=== PATIENT | male | born 1985 | race Caucasian/White ===

== ENCOUNTER 2016-07-01 03:30 | Emergency (ER) | payer OTHER ==
[~2016-07-01 03:30] MED LIST: GABA300C3 PO
[2016-07-01] MEDS ORDERED: KETOROLAC 30 MG/ML VIAL (J1885) As Ordered ONE (07:06)
--- NOTE | 2016-07-01 08:15 | REP ---
Clinical: Trauma. Fall. Comparison: 04/15/2015 . Technique: AP, lateral, bilateral oblique, and coned-down views. Findings: Alignment and lordosis is maintained. The vertebral bodies including transverse process and spinous processes are intact and normal. There is no evidence for acute fracture / compression injury or subluxation. No evidence for spondylolysis or spondylolisthesis. No significant degenerative change is noted. Impression: Normal lumbosacral spine radiograph series. No acute fracture / compression injury or subluxation. Signed by Felipe Maria MD 07/01/2016 08:06 A
[2016-07-01] MEDS ORDERED: HYDROmorphone HCL 1 MG/ML SYRINGE (J1170) As Ordered ONE (08:33)
--- NOTE | 2016-07-01 09:09 | EDDOCDS ---
Physician Documentation [facility] Name: Hermes Barcenas Age: 30 yrs Sex: Male : 1985 Arrival Date: 07/01/2016 Time: 03:30 Bed I2 / M2 Private MD: Disposition: 07/01/16 08:31 Discharged to Home/Self Care. Impression: Strain of muscle and tendon of back wall of thorax - acute on chronic. - Condition is Stable. - Discharge Instructions: Back Pain, Adult, Muscle Strain. - Prescriptions for Naprosyn 500 mg Oral Tablet - take 1 tablet by ORAL route 2 times per day take with food; 30 tablet. Hydrocodone- Acetaminophen 5-325 mg Oral Tablet - take 1 tablet by ORAL route every 6 hours As needed MDD: 4 tabs; 12 tablet. Cyclobenzaprine 10 mg Oral Tablet - take 1 tablet by ORAL route 3 times per day As needed; 15 tablet. - Medication Reconciliation, Work Release Form - 2 day form. - Follow up: Private Physician; When: Call to arrange an appointment; Reason: Wound/Symptom Recheck, Recheck today's complaints, Worsening of conditions, Continuance of care. - Problem is an acute exacerbation. - Symptoms have improved. Historical: - Allergies: No known drug Allergies; - Home Meds: 1. none - PMHx: back painchronic; - Social history: Smoking status: Patient uses tobacco products, light tobacco smoker. No barriers to communication noted, The patient speaks fluent Estonian, Speaks appropriately for age. - Family history: Not pertinent. - : The pt / caregiver states he / she is not on anticoagulants. Home medication list is obtained from the patient. - Exposure Risk Screening:: None identified. Vital Signs: 07/01 03:47 BP 124 / 79; Pulse 95; Resp 18; Temp 97.5(T); Pulse Ox 96% on R/A; Weight 79.38 kg / kmg1 175 lbs (R); Height 5 ft. 9 in. (175.26 cm) (R); Pain 8/10; 07:15 BP 128 / 68; Pulse 78; Resp 18; Temp 97.4(O); Pulse Ox 98% ; Pain 8/10; jam1 08:00 Pain 8/10; ja5 08:27 BP 127 / 58; Pulse 85; Resp 16; Temp 97.5(O); Pulse Ox 96% on R/A; Pain 8/10; ja5 09:07 Pain 5/10; dsf 03:47 Body Mass Index 25.84 (79.38 kg, 175.26 cm) kmg1 MDM: 04:02 [facility] Payment Agreement was scanned into [email or web address] and attached to record. [facility] 07:03 ketorolac 60 mg IM once ordered. cc10 07:03 Spine. Lumbosacral, Complete Ordered. EDWV 07:12 Financial registration complete. mm15 08:30 Dilaudid - HYDROmorphone 1 mg IM once ordered. cc10 Administered Medications: 07:10 Drug: ketorolac 60 mg [ketorolac 30 mg/mL (1 mL) injection solution (2 mL)] Route: IM; ja5 Site: left gluteus; 08:00 Follow up: Pain 8 Adult ja 08:37 Drug: Dilaudid - HYDROmorphone 1 mg [hydromorphone 1 mg/mL injection syringe (1 mL)] jc4 Route: IM; Site: left gluteus; 09:07 Follow up: Pain 5/10 Adult dsf Signatures: Dispatcher [employer] EDWV Cheyanne Mcnamara RN RN kmg1 Lizy Villalpando RN RN dsf Ale Alanis mm15 Fabian Lin PA-C PARodo cc10 Gregoria Shaffer [facility] Tiffanie Ang RN jc4 Tamera Nunes RN ja5 The chart was reviewed and I authenticate all verbal orders and agree with the evaluation and treatment provided.Attachments: 04:02 [facility] Payment Agreement [facility] MTDD
--- NOTE | 2016-07-01 09:09 | EDDOCDS ---
Nurse's Notes [facility] Name: Hermes Human Age: 30 yrs Sex: Male : 1985 Arrival Date: 07/01/2016 Time: 03:30 Bed I2 / M2 Private MD: Diagnosis: Strain of muscle and tendon of back wall of thorax-acute on chronic Presentation: 07/01 03:44 Presenting complaint: Patient states: Slipped going down the stairs at his house approx kmg1 1 hour ago. Was able to catch himself but is now having mid back pain. Suicide/Homicide risk assessment- the patient denies having any suicidal and/or homicidal ideations and does not present with any other emotional, behavioral or mental health complaints. 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 Transition of care: patient was not received from another setting of care. 03:44 Acuity: MARTELL Level 4 km 03:44 Method Of Arrival: Walkin/Carried/Asstd [facility] 09:08 Adult Sepsis Screening: The patient does not have new or worsening altered mentation. dsf Patient's respiratory rate is less than 22. Systolic blood pressure is greater than 100. Patient has a qSOFA score of 0- Negative Sepsis Screen. Triage Assessment: 03:47 General: Appears in no apparent distress, uncomfortable, Behavior is appropriate for km age, cooperative, pleasant. Pain: Location: mid back area Pain currently is 8 out of 10 on a pain scale. Quality of pain is described as stabbing, stinging, Pain began 1 hour ago. Pt Declines HIV testing. Musculoskeletal: Reports pain in mid back area. 05:28 I have visited this patient for a triage reassessment, No change in assessment. km Historical: - Allergies: No known drug Allergies; - Home Meds: 1. none - PMHx: back painchronic; - Social history: Smoking status: Patient uses tobacco products, light tobacco smoker. No barriers to communication noted, The patient speaks fluent Lithuanian, Speaks appropriately for age. - Family history: Not pertinent. - : The pt / caregiver states he / she is not on anticoagulants. Home medication list is obtained from the patient. - Exposure Risk Screening:: None identified. Screenin:15 Screening information is obtained from the patient. Primary language is Lithuanian. Fall jam1 risk: No risks identified. Assistance ADL's: requires no assistance with activities of daily living. Abuse/DV Screen: The patient / caregiver reports he/she is: not in a situation that causes fear, pain or injury. Nutritional screening: No deficits noted. Exposure Risk Screening: None identified. Advance Directives: Currently, there is no health care proxy. There is no active DNR order. There is no living will. 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 Advance directive information has not previously been placed in an [facility] medical record. Further advance directive information is declined. home support is adequate. Assessment: 07:45 General: Appears uncomfortable, Behavior is appropriate for age, cooperative. Pain: ja5 Location: lumbar area, left mid back and right mid back Pain currently is 8 out of 10 on a pain scale. Neurological: Level of Consciousness is awake, alert, Oriented to person, place, time. Cardiovascular: Capillary refill < 3 seconds Heart tones S1 S2 present. Respiratory: Airway is patent Respiratory effort is even, unlabored. Derm: Skin is pink, warm & dry. Musculoskeletal: Circulation, motion, and sensation intact. Injury Description: There was no impact from fall, patient caught himself while grabbing railing and twisted his back. 09:07 General: Appears in no apparent distress, Behavior is appropriate for age, cooperative. dsf Pain: Pain currently is 5 out of 10 on a pain scale. Neurological: Level of Consciousness is awake, alert. Cardiovascular: Capillary refill < 3 seconds. Respiratory: Airway is patent Respiratory effort is even, unlabored, Respiratory pattern is regular, symmetrical. Derm: Skin is pink, warm & dry. Vital Signs: 03:47 BP 124 / 79; Pulse 95; Resp 18; Temp 97.5(T); Pulse Ox 96% on R/A; Weight 79.38 kg (R); kmg1 Height 5 ft. 9 in. (175.26 cm) (R); Pain 8/10; 07:15 BP 128 / 68; Pulse 78; Resp 18; Temp 97.4(O); Pulse Ox 98% ; Pain 8/10; jam1 08:00 Pain 8/10; ja5 08:27 BP 127 / 58; Pulse 85; Resp 16; Temp 97.5(O); Pulse Ox 96% on R/A; Pain 8/10; ja5 09:07 Pain 5/10; dsf 03:47 Body Mass Index 25.84 (79.38 kg, 175.26 cm) [facility] Vitals: 03:47 Log In Time: July 01, 2016 at 03:31. [facility] ED Course: 03:31 Patient visited by Tasha Echevarria Reg. hs2 03:31 Patient moved to Waiting hs2 03:46 Triage Initiated [facility] 03:51 Patient visited by Cheyanne Mcnamara, SAMMY. [facility] 04:02 [facility] Payment Agreement was scanned into [employer] and attached to record. slh 07:00 Fabian Lin PA-C is PHCP. cc10 07:00 Lorrie Lobo MD is Attending Physician. cc10 07:00 Patient visited by Fabian Lin PA-C. cc10 07:00 Patient visited by Fabian Lin PA-C. cc10 07:00 Patient moved to I2 / M2 kcs 07:01 Tamera Nunes,RN is Primary Nurse. ja5 07:04 Tiffanie Ang, SAMMY is Primary Nurse. jc4 07:15 Pt greeted and oriented to ED. Patient advised of names of staff involved in care, jam1 location of call forman, wait times and NPO status. Patient has correct armband on for positive identification. Bed in low position. Call light in reach. Side rails up X 1. Door closed. 07:49 Patient visited by Tamera Nunes,SAMMY. ja5 08:27 Patient visited by Tamera Nunes,SAMMY. ja5 08:35 Spine. Lumbosacral, Complete Returned. EDMS 09:07 The patient / caregiver is instructed regarding the plan of care and ED course. dsf 09:07 No IV's were initiated during this patient's visit. No procedures done that require dsf assistance. Administered Medications: 07:10 Drug: ketorolac 60 mg [ketorolac 30 mg/mL (1 mL) injection solution (2 mL)] Route: IM; ja5 Site: left gluteus; 08:00 Follow up: Pain 8/10 Adult ja5 08:37 Drug: Dilaudid - HYDROmorphone 1 mg [hydromorphone 1 mg/mL injection syringe (1 mL)] jc4 Route: IM; Site: left gluteus; 09:07 Follow up: Pain 09/25 Adult dsf Order Results: Radiology Order: Spine. Lumbosacral, Complete Test: Spine. Lumbosacral, Complete REASON FOR EXAMINATION: Trauma; Clinical: Trauma. Fall.; ; Comparison: 04/15/2015 .; ; Technique: AP, lateral, bilateral oblique, and coned-down views.; ; Findings: Alignment and lordosis is maintained. The vertebral bodies including; transverse process and spinous processes are intact and normal. There is no; evidence for acute fracture / compression injury or subluxation. No evidence for; spondylolysis or spondylolisthesis. No significant degenerative change is; noted.; ; Impression:; Normal lumbosacral spine radiograph series.; No acute fracture / compression injury or subluxation.; ; ; Signed by; Felipe Maria MD 07/01/2016 08:06 A; Outcome: 08:31 Discharge ordered by Provider. cc10 09:07 Discharge Assessment: Patient awake, alert and oriented x 3. No cognitive and/or dsf functional deficits noted. Patient verbalized understanding of disposition instructions. patient administered narcotics - yes. Pt provided with safe discharge. The following High Risk Discharge criteria are identified: None. Discharged to home ambulatory, with significant other. Condition: stable. Discharge instructions given to patient, Instructed on discharge instructions, follow up and referral plans. medication usage, no driving heavy equipment, Rest, Ice, Compression and Elevation. Demonstrated understanding of instructions, medications, Pt was receptive of discharge instructions/ teaching. Prescriptions given X 3, Work note provided to patient. No special radiology studies were completed. Property sent home with patient. 09:08 Patient left the ED. dsf Signatures: Dispatcher [employer] EDMS Zena Garcia, RN RN Cheyanne Aragon RN RN kmg1 Jackelyn Mccarty, AUTOMOBILE SERVICE STATION MANAGER AUTOMOBILE SERVICE STATION MANAGER jam1 Tiffanie Ang RN RN [email or web address] Lizy VillalpandoRN RN juanaf Fabian Lin, PA-C PA-C cc10 Gregoria Shaffer Tasha Burris, Reg Reg hs2 Tamera Nunes,RN RN ja5 MTDD
--- NOTE | 2016-07-03 10:09 | EDDOCDS ---
Physician Documentation [facility] Name: Hermes Barcenas Age: 30 yrs Sex: Male : 1985 Arrival Date: 07/01/2016 Time: 03:30 Bed I2 / M2 Private MD: Disposition: 07/01/16 08:31 Discharged to Home/Self Care. Impression: Strain of muscle and tendon of back wall of thorax - acute on chronic. - Condition is Stable. - Discharge Instructions: Back Pain, Adult, Muscle Strain. - Prescriptions for Naprosyn 500 mg Oral Tablet - take 1 tablet by ORAL route 2 times per day take with food; 30 tablet. Hydrocodone- Acetaminophen 5-325 mg Oral Tablet - take 1 tablet by ORAL route every 6 hours As needed MDD: 4 tabs; 12 tablet. Cyclobenzaprine 10 mg Oral Tablet - take 1 tablet by ORAL route 3 times per day As needed; 15 tablet. - Medication Reconciliation, Work Release Form - 2 day form. - Follow up: Private Physician; When: Call to arrange an appointment; Reason: Wound/Symptom Recheck, Recheck today's complaints, Worsening of conditions, Continuance of care. - Problem is an acute exacerbation. - Symptoms have improved. Historical: - Allergies: No known drug Allergies; - Home Meds: 1. none - PMHx: back painchronic; - Social history: Smoking status: Patient uses tobacco products, light tobacco smoker. No barriers to communication noted, The patient speaks fluent Danish, Speaks appropriately for age. - Family history: Not pertinent. - : The pt / caregiver states he / she is not on anticoagulants. Home medication list is obtained from the patient. - Exposure Risk Screening:: None identified. Vital Signs: 07/01 03:47 BP 124 / 79; Pulse 95; Resp 18; Temp 97.5(T); Pulse Ox 96% on R/A; Weight 79.38 kg / kmg1 175 lbs (R); Height 5 ft. 9 in. (175.26 cm) (R); Pain 8/10; 07:15 BP 128 / 68; Pulse 78; Resp 18; Temp 97.4(O); Pulse Ox 98% ; Pain 8/10; jam1 08:00 Pain 8/10; ja5 08:27 BP 127 / 58; Pulse 85; Resp 16; Temp 97.5(O); Pulse Ox 96% on R/A; Pain 8/10; ja5 09:07 Pain 5/10; dsf 03:47 Body Mass Index 25.84 (79.38 kg, 175.26 cm) kmg1 MDM: 04:02 [facility] Payment Agreement was scanned into [employer] and attached to record. [facility] 07:03 ketorolac 60 mg IM once ordered. cc 07:03 Spine. Lumbosacral, Complete Ordered. EDVA 07:12 Financial registration complete. mm15 08:30 Dilaudid - HYDROmorphone 1 mg IM once ordered. cc10 07/02 11:07 T-Sheet-- Draft Copy was scanned into [employer] and attached to record. gb Administered Medications: 07/01 07:10 Drug: ketorolac 60 mg [ketorolac 30 mg/mL (1 mL) injection solution (2 mL)] Route: IM; ja5 Site: left gluteus; 08:00 Follow up: Pain 8/10 Adult ja5 08:37 Drug: Dilaudid - HYDROmorphone 1 mg [hydromorphone 1 mg/mL injection syringe (1 mL)] jc4 Route: IM; Site: left gluteus; 09:07 Follow up: Pain 5/10 Adult dsf Signatures: Dispatcher [employer] EDVA Cheyanne Mcnamara, RN RN kmg1 Griselda Al, Reg Reg gb Lizy Villalpando RN RN dsf Ale Alanis mm15 Fabian Lin PARodo PARodo curtis Gregoria Shaffer [facility] Tiffanie Ang RN jc4 Tamera Nunes RN ja5 The chart was reviewed and I authenticate all verbal orders and agree with the evaluation and treatment provided.Attachments: 04:02 [facility] Payment Agreement [facility] 07/02 11:07 T-Sheet-- Draft Copy gb Chart Complete MTDD
--- NOTE | 2016-07-03 10:09 | EDDOCDS ---
Physician Documentation [facility] Name: Hermes Barcenas Age: 30 yrs Sex: Male : 1985 Arrival Date: 07/01/2016 Time: 03:30 Bed I2 / M2 Private MD: Disposition: 07/01/16 08:31 Discharged to Home/Self Care. Impression: Strain of muscle and tendon of back wall of thorax - acute on chronic. - Condition is Stable. - Discharge Instructions: Back Pain, Adult, Muscle Strain. - Prescriptions for Naprosyn 500 mg Oral Tablet - take 1 tablet by ORAL route 2 times per day take with food; 30 tablet. Hydrocodone- Acetaminophen 5-325 mg Oral Tablet - take 1 tablet by ORAL route every 6 hours As needed MDD: 4 tabs; 12 tablet. Cyclobenzaprine 10 mg Oral Tablet - take 1 tablet by ORAL route 3 times per day As needed; 15 tablet. - Medication Reconciliation, Work Release Form - 2 day form. - Follow up: Private Physician; When: Call to arrange an appointment; Reason: Wound/Symptom Recheck, Recheck today's complaints, Worsening of conditions, Continuance of care. - Problem is an acute exacerbation. - Symptoms have improved. Historical: - Allergies: No known drug Allergies; - Home Meds: 1. none - PMHx: back painchronic; - Social history: Smoking status: Patient uses tobacco products, light tobacco smoker. No barriers to communication noted, The patient speaks fluent Upper Sorbian, Speaks appropriately for age. - Family history: Not pertinent. - : The pt / caregiver states he / she is not on anticoagulants. Home medication list is obtained from the patient. - Exposure Risk Screening:: None identified. Vital Signs: 07/01 03:47 BP 124 / 79; Pulse 95; Resp 18; Temp 97.5(T); Pulse Ox 96% on R/A; Weight 79.38 kg / kmg1 175 lbs (R); Height 5 ft. 9 in. (175.26 cm) (R); Pain 8/10; 07:15 BP 128 / 68; Pulse 78; Resp 18; Temp 97.4(O); Pulse Ox 98% ; Pain 8/10; jam1 08:00 Pain 8/10; ja5 08:27 BP 127 / 58; Pulse 85; Resp 16; Temp 97.5(O); Pulse Ox 96% on R/A; Pain 8/10; ja5 09:07 Pain 5/10; dsf 03:47 Body Mass Index 25.84 (79.38 kg, 175.26 cm) kmg1 MDM: 04:02 [facility] Payment Agreement was scanned into [employer] and attached to record. [facility] 07:03 ketorolac 60 mg IM once ordered. cc 07:03 Spine. Lumbosacral, Complete Ordered. EDNV 07:12 Financial registration complete. mm15 08:30 Dilaudid - HYDROmorphone 1 mg IM once ordered. cc10 07/02 11:07 T-Sheet-- Draft Copy was scanned into [employer] and attached to record. gb Administered Medications: 07/01 07:10 Drug: ketorolac 60 mg [ketorolac 30 mg/mL (1 mL) injection solution (2 mL)] Route: IM; ja5 Site: left gluteus; 08:00 Follow up: Pain 8/10 Adult ja5 08:37 Drug: Dilaudid - HYDROmorphone 1 mg [hydromorphone 1 mg/mL injection syringe (1 mL)] jc4 Route: IM; Site: left gluteus; 09:07 Follow up: Pain 5/10 Adult dsf Signatures: Dispatcher [employer] EDNV Cheyanne Mcnamara, RN RN kmg1 Griselda Al, Reg Reg gb Lizy Villalpando RN RN dsf Ale Alanis mm15 Fabian Lin PARodo PARdoo curtis Gregoria Shaffer [facility] Tiffanie Ang RN jc4 Tamera Nunes RN ja5 The chart was reviewed and I authenticate all verbal orders and agree with the evaluation and treatment provided.Attachments: 04:02 [facility] Payment Agreement [facility] 07/02 11:07 T-Sheet-- Draft Copy gb Chart Complete MTDD
--- NOTE | 2016-07-03 10:09 | EDDOCDS ---
Nurse's Notes [facility] Name: Hermes Human Age: 30 yrs Sex: Male : 1985 Arrival Date: 07/01/2016 Time: 03:30 Bed I2 / M2 Private MD: Diagnosis: Strain of muscle and tendon of back wall of thorax-acute on chronic Presentation: 07/01 03:44 Presenting complaint: Patient states: Slipped going down the stairs at his house approx kmg1 1 hour ago. Was able to catch himself but is now having mid back pain. Suicide/Homicide risk assessment- the patient denies having any suicidal and/or homicidal ideations and does not present with any other emotional, behavioral or mental health complaints. 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 Transition of care: patient was not received from another setting of care. 03:44 Acuity: MARTELL Level 4 km 03:44 Method Of Arrival: Walkin/Carried/Asstd [facility] 09:08 Adult Sepsis Screening: The patient does not have new or worsening altered mentation. dsf Patient's respiratory rate is less than 22. Systolic blood pressure is greater than 100. Patient has a qSOFA score of 0- Negative Sepsis Screen. Triage Assessment: 03:47 General: Appears in no apparent distress, uncomfortable, Behavior is appropriate for km age, cooperative, pleasant. Pain: Location: mid back area Pain currently is 8 out of 10 on a pain scale. Quality of pain is described as stabbing, stinging, Pain began 1 hour ago. Pt Declines HIV testing. Musculoskeletal: Reports pain in mid back area. 05:28 I have visited this patient for a triage reassessment, No change in assessment. km Historical: - Allergies: No known drug Allergies; - Home Meds: 1. none - PMHx: back painchronic; - Social history: Smoking status: Patient uses tobacco products, light tobacco smoker. No barriers to communication noted, The patient speaks fluent Urdu, Speaks appropriately for age. - Family history: Not pertinent. - : The pt / caregiver states he / she is not on anticoagulants. Home medication list is obtained from the patient. - Exposure Risk Screening:: None identified. Screenin:15 Screening information is obtained from the patient. Primary language is Urdu. Fall jam1 risk: No risks identified. Assistance ADL's: requires no assistance with activities of daily living. Abuse/DV Screen: The patient / caregiver reports he/she is: not in a situation that causes fear, pain or injury. Nutritional screening: No deficits noted. Exposure Risk Screening: None identified. Advance Directives: Currently, there is no health care proxy. There is no active DNR order. There is no living will. There is no Power of Restaurant Hospitality Manager. Advance directive information has not previously been placed in an [facility] medical record. Further advance directive information is declined. home support is adequate. Assessment: 07:45 General: Appears uncomfortable, Behavior is appropriate for age, cooperative. Pain: ja5 Location: lumbar area, left mid back and right mid back Pain currently is 8 out of 10 on a pain scale. Neurological: Level of Consciousness is awake, alert, Oriented to person, place, time. Cardiovascular: Capillary refill < 3 seconds Heart tones S1 S2 present. Respiratory: Airway is patent Respiratory effort is even, unlabored. Derm: Skin is pink, warm & dry. Musculoskeletal: Circulation, motion, and sensation intact. Injury Description: There was no impact from fall, patient caught himself while grabbing railing and twisted his back. 09:07 General: Appears in no apparent distress, Behavior is appropriate for age, cooperative. dsf Pain: Pain currently is 5 out of 10 on a pain scale. Neurological: Level of Consciousness is awake, alert. Cardiovascular: Capillary refill < 3 seconds. Respiratory: Airway is patent Respiratory effort is even, unlabored, Respiratory pattern is regular, symmetrical. Derm: Skin is pink, warm & dry. Vital Signs: 03:47 BP 124 / 79; Pulse 95; Resp 18; Temp 97.5(T); Pulse Ox 96% on R/A; Weight 79.38 kg (R); kmg1 Height 5 ft. 9 in. (175.26 cm) (R); Pain 8/10; 07:15 BP 128 / 68; Pulse 78; Resp 18; Temp 97.4(O); Pulse Ox 98% ; Pain 8/10; jam1 08:00 Pain 8/10; ja5 08:27 BP 127 / 58; Pulse 85; Resp 16; Temp 97.5(O); Pulse Ox 96% on R/A; Pain 8/10; ja5 09:07 Pain 5/10; dsf 03:47 Body Mass Index 25.84 (79.38 kg, 175.26 cm) [facility] Vitals: 03:47 Log In Time: July 01, 2016 at 03:31. [facility] ED Course: 03:31 Patient visited by Tasha Echevarria Reg. hs2 03:31 Patient moved to Waiting hs2 03:46 Triage Initiated [facility] 03:51 Patient visited by Cheyanne Mcnamara, SAMMY. [facility] 04:02 [facility] Payment Agreement was scanned into [employer] and attached to record. slh 07:00 Fabian Lin PA-C is PHCP. cc10 07:00 Lorrie Lobo MD is Attending Physician. cc10 07:00 Patient visited by Fabian Lin PA-C. cc10 07:00 Patient visited by Fabian Lin PA-C. cc10 07:00 Patient moved to I2 / M2 kcs 07:01 Tamera Nunes,RN is Primary Nurse. ja5 07:04 Tiffanie Ang, SAMMY is Primary Nurse. jc4 07:15 Pt greeted and oriented to ED. Patient advised of names of staff involved in care, jam1 location of call forman, wait times and NPO status. Patient has correct armband on for positive identification. Bed in low position. Call light in reach. Side rails up X 1. Door closed. 07:49 Patient visited by Tamera Nunes,SAMMY. ja5 08:27 Patient visited by Tamera Nunes,SAMMY. ja5 08:35 Spine. Lumbosacral, Complete Returned. EDMS 09:07 The patient / caregiver is instructed regarding the plan of care and ED course. dsf 09:07 No IV's were initiated during this patient's visit. No procedures done that require dsf assistance. 07/02 11:07 T-Sheet-- Draft Copy was scanned into [employer] and attached to record. gb Administered Medications: 07/01 07:10 Drug: ketorolac 60 mg [ketorolac 30 mg/mL (1 mL) injection solution (2 mL)] Route: IM; ja5 Site: left gluteus; 08:00 Follow up: Pain 8/10 Adult ja5 08:37 Drug: Dilaudid - HYDROmorphone 1 mg [hydromorphone 1 mg/mL injection syringe (1 mL)] jc4 Route: IM; Site: left gluteus; 09:07 Follow up: Pain 09/25 Adult dsf Order Results: Radiology Order: Spine. Lumbosacral, Complete Test: Spine. Lumbosacral, Complete REASON FOR EXAMINATION: Trauma; Clinical: Trauma. Fall.; ; Comparison: 04/15/2015 .; ; Technique: AP, lateral, bilateral oblique, and coned-down views.; ; Findings: Alignment and lordosis is maintained. The vertebral bodies including; transverse process and spinous processes are intact and normal. There is no; evidence for acute fracture / compression injury or subluxation. No evidence for; spondylolysis or spondylolisthesis. No significant degenerative change is; noted.; ; Impression:; Normal lumbosacral spine radiograph series.; No acute fracture / compression injury or subluxation.; ; ; Signed by; Felipe Maria MD 07/01/2016 08:06 A; Outcome: 08:31 Discharge ordered by Provider. cc10 09:07 Discharge Assessment: Patient awake, alert and oriented x 3. No cognitive and/or dsf functional deficits noted. Patient verbalized understanding of disposition instructions. patient administered narcotics - yes. Pt provided with safe discharge. The following High Risk Discharge criteria are identified: None. Discharged to home ambulatory, with significant other. Condition: stable. Discharge instructions given to patient, Instructed on discharge instructions, follow up and referral plans. medication usage, no driving heavy equipment, Rest, Ice, Compression and Elevation. Demonstrated understanding of instructions, medications, Pt was receptive of discharge instructions/ teaching. Prescriptions given X 3, Work note provided to patient. No special radiology studies were completed. Property sent home with patient. 09:08 Patient left the ED. dsf Signatures: Dispatcher [employer] EDMS Zena Garcia, RN RN Cheyanne Aragon RN RN kmg1 Jackelyn Mccarty, ENVIRONMENTAL PROTECTION SPECIALIST ENVIRONMENTAL PROTECTION SPECIALIST jam1 Griselda Al, Reg Reg gb Tiffanie Ang RN RN jc4 Lizy Villalpando RN RN dsf Fabian Lin, PA-C PA-C cc10 Gregoria Shaffer [facility] Tasha Echevarria, Reg Reg hs2 Tamera Nunes RN RN ja5 Chart Complete MTDD
== END 2016-07-01 09:08 | disposition home or self-care (01) ==
LOC: M ED 03:30
DX: S39.012A Strain of muscle, fascia and tendon of lower back, initial encounter (principal); W10.8XXA Fall (on) (from) other stairs and steps, initial encounter; Y92.018 Other place in single-family (private) house as the place of occurrence of the external cause; Y93.89 Activity, other specified; Y99.8 Other external cause status; G89.29 Other chronic pain; F17.210 Nicotine dependence, cigarettes, uncomplicated
CPT/HCPCS: 72110; 96372; 99283; J1170; J1885

== ENCOUNTER → 2016-07-05 | Outpatient (REF) ==
--- NOTE | 2016-07-05 16:01 | REP ---
PARTIAL LUMBAR SPINE, THREE VIEWS: HISTORY: Degenerative disc disease. COMPARISON: 07/01/2016 There is no acute fracture or subluxation. The L4-5 intervertebral disc is decreased in height consistent with disc degeneration. A small osteophyte is present on L3. IMPRESSION: Degenerative change as described above. Signed by George Edwards MD 07/05/2016 04:05 P
--- NOTE | 2016-07-05 16:19 | REP ---
Clinical: Pain and disability . Technique: Internal rotation, external rotation, and Y view left shoulder . Findings: No acute fracture or dislocation. The acromioclavicular and glenohumeral joints are intact. No periarticular calcifications or degenerative changes are appreciated. Sub acromial space is normal. Surrounding soft tissues are unremarkable. Impression: Normal age-appropriate left shoulder radiographs. Signed by Felipe Maria MD 07/05/2016 04:10 P
== END ==
LOC: M SMT 15:18
PROVIDERS: ATTEND Internal Medicine
DX: Z02.71 Encounter for disability determination (principal); M54.5 Low back pain